=== PATIENT | female | born 1980 | race American Indian/Alaskan Native ===

== ENCOUNTER 2019-12-20 23:24 | Inpatient (IN) | payer OTHER ==
[2019-12-20] MEDS ORDERED: NIFEdipine 10 MG Cap PO ONE (23:35)
[2019-12-20] MEDS ORDERED: Terbutaline 1 MG/ML SDV SUBCUT ONE (23:35)
[2019-12-20] MEDS ORDERED: Neostigmine Methylsulfate 1 MG/ML 5 ML Syringe ONE (23:36)
[2019-12-20] MEDS ORDERED: Dexamethasone 4 MG/ML SDV ONE (23:36)
[2019-12-20] MEDS ORDERED: Ondansetron 4 MG/2 ML SDV ONE (23:36)
[2019-12-20] MEDS ORDERED: Propofol 200 MG/20 ML SDV ONE (23:36)
[2019-12-20] MEDS ORDERED: Succinylcholine 200 MG/10 ML MDV ONE (23:36)
[2019-12-20] MEDS ORDERED: Rocuronium 50 MG/5 ML Vial ONE (23:36)
[2019-12-20] MEDS ORDERED: Glycopyrrolate 0.2 MG/ML 5 ML MDV ONE (23:36)
[2019-12-20] MEDS ORDERED: fentaNYL 250 MCG/5 ML SDV ONE (23:37)
[2019-12-20] MEDS ORDERED: Midazolam 1 MG/ML 2 ML SDV ONE (23:37)
[2019-12-20] MEDS ORDERED: Oxytocin 10 Units/1 ML SDV ONE (23:43)
[2019-12-20] MEDS ORDERED: cefOXitin 1 GM Vial ONE (23:43)
--- NOTE | 2019-12-20 23:49 | PCM.LDHP ---
L&D History of Present Illness - General Date of Service: 12/20/19 () Admit Problem/Dx: Admission Diagnosis/Problem Admission Diagnosis/Problem Source of Information: Patient History Limitations: Reports: No Limitations - History of Present Illness Introduction:: no care Due in February with twins Timing/Duration: Reports: minutes: (2-3) Location, : Reports: Abdomen Severity: Moderate Improves with: Reports: None - Related Data Allergies/Adverse Reactions: Allergies Allergy/AdvReac Type Severity Reaction Status Date / Time No Known Allergies Allergy Verified 12/20/19 23:37 Home Medications: Home Meds NK [No Known Home Meds] 12/20/19 [History] Past Medical History [employer] History: Reports: : 4 Para: 3 LMP (Approximate): (due February date unknown) Social & Family History - Tobacco Use Smoking Status *Q: Current Every Day Smoker H&P Review of Systems - Review of Systems: Review Of Systems: See Below General: Reports: No Symptoms HEENT: Reports: No Symptoms Pulmonary: Reports: No Symptoms Cardiovascular: Reports: No Symptoms Gastrointestinal: Reports: No Symptoms Genitourinary: Reports: No Symptoms Musculoskeletal: Reports: No Symptoms Skin: Reports: No Symptoms Psychiatric: Reports: No Symptoms Neurological: Reports: No Symptoms Hematologic/Lymphatic: Reports: No Symptoms Immunologic: Reports: No Symptoms L&D Exam - Exam Exam: See Below - Vital Signs Weight: 160 lb - OB Specific Contraction Intensity: Moderate Movement: Active Presentation: Transverse - Keith Score Keith Score Cervix Position: Anterior Keith Score Consistency: Soft Keith Score Effacement: >80% Keith Score Dilation: > 5 cm Keith Score Infant's Station: -1 ,0 Keith Score Total: 12 - Exam General: Alert, Oriented HEENT: PERRLA Lungs: Normal Respiratory Effort Cardiovascular: Regular Rate GI/Abdominal Exam: Normal Bowel Sounds Rectal Exam: Normal Exam Genitourinary: Normal external exam Back Exam: Normal Inspection Extremities: Normal Inspection, No Pedal Edema Skin: Warm Neurological: Cranial Nerves Intact Psychiatric: Alert, Normal Affect - Problem List (1) Tetrahydrocannabinol (THC) dependence SNOMED Code(s): 62991753 ICD Code: F12.20 - CANNABIS DEPENDENCE, UNCOMPLICATED Status: Acute Current Visit: Yes (2) Smoker SNOMED Code(s): 50787586 ICD Code: F17.200 - NICOTINE DEPENDENCE, UNSPECIFIED, UNCOMPLICATED Status : Acute Current Visit: Yes (3) No care in current SNOMED Code(s): 305508149 ICD Code: O09.30 - SUPRVSN OF PREG W INSUFFICIENT ANTENAT CARE, UNSP TRIMESTER Status: Acute Current Visit: Yes Qualifiers: Trimester: second trimester Qualified Code(s): O09.32 - Supervision of with insufficient care, second trimester (4) Twin delivered by section in hospital SNOMED Code(s): 59558949, 617663277 ICD Code: Z38.31 - TWIN LIVEBORN INFANT, DELIVERED BY Status: Acute Current Visit: Yes Problem List Initiated/Reviewed/Updated: Yes Orders Last 24hrs: Active Orders 24 hr Category Date Time Status CBC WITH AUTO DIFF [HEME] Stat Lab 12/20/19 23:27 Ordered DRUG SCREEN, URINE [URCHEM] Stat Lab 12/20/19 23:27 Ordered HBSAG SCREEN Stat Lab 12/20/19 23:27 Ordered HCV ANTIBODY Stat Lab 12/20/19 23:27 Ordered HIV RAPID SCREEN RLFX COMFIRM [CHEM] Stat Lab 12/20/19 23:27 Ordered RED BLOOD CELLS LP [BBK] Routine Lab 12/20/19 23:27 Ordered RUBELLA ANTIBODIES, IGG Stat Lab 12/20/19 23:27 Ordered T PALLIDUM SCREENING CASCADE Stat Lab 12/20/19 23:27 Ordered TYPE AND SCREEN [BBK] Routine Lab 12/20/19 23:31 Ordered TYPE AND SCREEN [BBK] Stat Lab 12/20/19 23:27 Ordered UA W/MICROSCOPIC [URIN] Stat Lab 12/20/19 23:27 Ordered Assessment/Plan Comment:: 39 year twins with no care smoker babies transverse [facility] notified and sending two crews Plan c section delivery and resuscitation
[2019-12-20] MEDS ORDERED: Penicillin G Potassium 5 MILLUNITS in Sodium Chloride 0.9% 100 ML IV ONE (23:50)
[2019-12-20] MEDS ORDERED: Betamethasone Acetate/Betamethasone Sod Phosphate 30 MG/5 ML MDV IM ONE (23:51)
[2019-12-20] MEDS ORDERED: Sodium Chloride 0.9% 100 ML ONE (23:54)
[2019-12-21] MEDS ORDERED: fentaNYL 250 MCG/5 ML SDV ONE (00:27)
[2019-12-21] MEDS ORDERED: fentaNYL 100 MCG/2 ML SDV ONE (01:07)
[2019-12-21] MEDS ORDERED: hydrOXYzine HCL 100 MG/2 ML SDV IM ONE (01:10)
[2019-12-21] MEDS ORDERED: HYDROmorphone/Normal Saline 15 MG/30 ML PCA IV ONE (01:18)
[2019-12-21] MEDS ORDERED: Naloxone 0.4 MG/ML SDV IV PRN (01:20)
[2019-12-21] MEDS ORDERED: HYDROmorphone/Normal Saline 15 MG/30 ML PCA IV PRN (01:20)
[2019-12-21] MEDS ORDERED: Meperidine PF 100 MG/ML Syringe IM ONE (01:59)
[2019-12-21] MEDS ORDERED: hydrOXYzine HCL 100 MG/2 ML SDV IM PRN (02:04)
[2019-12-21] MEDS ORDERED: Ondansetron 4 MG/2 ML SDV IVPUSH PRN (02:05)
[2019-12-21] MEDS: Acetaminophen 325 MG Tab PO SCH ×4 (02:16→20:16)
[2019-12-21] MEDS: cefOXitin 2 GM in Sodium Chloride 0.9% 50 ML IV SCH ×4 (02:20→20:16)
[2019-12-21] MEDS ORDERED: Ibuprofen 600 MG Tab PO SCH (05:00)
[2019-12-21] MEDS ORDERED: Dextrose 5%-Lactated Ringers 1,000 ML IV SCH ×3 (07:00→18:16)
--- NOTE | 2019-12-21 08:11 | PCM.SN.2 ---
- Free Text/Narrative Note: I called the NICU this morning and got the ophone number for her to call and check on her babies. Baby A is on the vent and will go to Cpap today and Baby B is on C pap. Both are doing well. Maribel has acute anemia from blood loss, I started her on Iron supplement today and a vitamin. I encouraged ambulation and deep breathing today.
[2019-12-21] MEDS: Prenatal Multivitamin with Calcium/Folic Acid/Iron Tab PO SCH (09:12)
[2019-12-21] MEDS: Ibuprofen 600 MG Tab PO SCH ×3 (09:13→22:19)
--- NOTE | 2019-12-21 09:23 | PN ---
DATE OF SERVICE: 12/21/2019 SUBJECTIVE: Maribel had a early this a.m. She states her pain is controlled with the use of a DINING ROOM HOST/HOSTESS. She has been afebrile. Vital signs stable. Oral intake ice chips. Urine output 350 mL via Moulton catheter. Her IV is running at 200 mL per hour. She has no other questions or concerns. OBJECTIVE: GENERAL: Maribel Mallory is a pleasant 39-year-old female. She is alert and orientated. VITAL SIGNS: TPR at 0724, 95.8; 74; 18; blood pressure 103/56. HEENT: Negative. NECK: Supple. HEART: Regular rate and rhythm. LUNGS: Clear. ABDOMEN: Abdominal binder is on. Aquacel dressing is on. There is some shadowing. EXTREMITIES: Without peripheral edema. ASSESSMENT: , viable twin males, both A and B breech presentation. POSTOPERATIVE DIAGNOSIS: twin with ruptured membranes, active labor. Date of surgery: 12/21/2019. Surgeon: Armond Buckley MD. PLAN: 1. Leave IV running at 200 mL per hour until 1800. 2. Discontinue Moulton. 3. Full liquid diet for breakfast, advanced to regular as tolerated. 4. Use incentive spirometer 10 times every hour while awake. 5. May shower when feeling able to. 6. We will evaluate p.r.n. or in a.m. Janelle Gar PA-C /[id number]
[2019-12-21] MEDS: Ferrous Sulfate 325 MG Tab PO SCH (16:19)
[2019-12-21] MEDS: Dextrose 5%-Lactated Ringers 1,000 ML IV SCH (18:35)
[2019-12-22] MEDS: Acetaminophen 325 MG Tab PO SCH ×3 (02:10→13:34)
[2019-12-22] MEDS: cefOXitin 2 GM in Sodium Chloride 0.9% 50 ML IV SCH ×2 (02:11→07:40)
[2019-12-22] MEDS: Ibuprofen 600 MG Tab PO SCH ×2 (03:26→11:30)
[2019-12-22] MEDS: Dextrose 5%-Lactated Ringers 1,000 ML IV SCH (05:31)
[2019-12-22] MEDS ORDERED: HYDROmorphone 2 MG Tab PO PRN (07:44)
[2019-12-22] MEDS: Ferrous Sulfate 325 MG Tab PO SCH (08:41)
[2019-12-22] MEDS ORDERED: Docusate Sodium 100 MG Cap PO SCH (09:00)
[2019-12-22] MEDS ORDERED: Bisacodyl 5 MG Tab PO SCH (09:00)
[2019-12-22 09:13] LABS: HBSAG SCREEN Negative (Negative)
[2019-12-22] MEDS: Prenatal Multivitamin with Calcium/Folic Acid/Iron Tab PO SCH (11:42)
--- NOTE | 2019-12-22 13:54 | DISCH ---
ADMISSION DIAGNOSES: 1. Intrauterine of twins, approximately 26 to 28 weeks' gestation. 2. Cannabis dependence. 3. Nicotine dependence. 4. No care in current . 5. Toxicology screen presumptive positive for MDMA and marijuana. DISCHARGE DIAGNOSIS: section, viable twin males, both A and B breech presentation. Date of 12/21/2019. Surgeon: Armond Buckley MD. POSTOPERATIVE DIAGNOSIS: twin with ruptured membranes, active labor. HISTORY: Maribel Mallory is a pleasant 39-year-old female, who presented to [facility] in active labor with twin males and no care. After preoperative evaluation and discussion of possible risks and possible complications, she wished to proceed with surgical procedure. HOSPITAL COURSE: Maribel had her surgery on 12/21/2019. She had no operative complications. On postoperative day #1, IV was decreased at 1800 to 100 mL per hour. Moulton was discontinued. Full liquid diet advanced to a regular diet. On postoperative day #2, she was able to be discharged to home. Pain was well managed on oral pain medication. Activity was good. Vital signs were stable. Hemoglobin was 8.8. PHYSICAL EXAMINATION: GENERAL: Maribel Mallory is a pleasant 39-year-old female. VITAL SIGNS: Height is 5 feet 2 inches. Weight is 160 pounds. TPR at 0209; 97.2, 52, 16, blood pressure 103/76. HEENT: Negative. NECK: Supple. HEART: Regular rate and rhythm. LUNGS: Clear. ABDOMEN: Aquacel dressing, stapled midline lower incision intact. Abdominal binder has been on. EXTREMITIES: Without peripheral edema. DISPOSITION: Discharged to home. CONDITION: Stable and improving. FOLLOWUP APPOINTMENT: With Janelle Gar PA-C, on 01/02/2020 at 10:00 a.m. HOME MEDICATIONS: 1. Tylenol 650 mg oral q.6 hours p.r.n. pain. 2. Dulcolax tablets 10 mg oral b.i.d. #30. To stop when having a bowel movement. 3. Colace 100 mg oral b.i.d. #100. 4. Dilaudid 2 mg every 6 hours p.r.n. pain #28. 5. Motrin 600 mg q.6 hours p.r.n. pain #40. 6. vitamins plus iron 1 daily #100. 7. Vitron-C b.i.d. for 30 days. DIET: Usual diet as tolerated. Drink 8 to 10 glasses of water a day. ACTIVITY: No lifting over 10 pounds for 6 weeks. Other activity: Walk at least 6 times a day. Driving: Do not drive for 1 week and while on pain medication. Shower/bathing: May shower. Notify provider if any fever, increased pain, swelling, redness, drainage, nausea, or vomiting. Keep site clean and dry. Wound incision care: Take off Aquacel on 12/26/2019. Use incentive spirometer 10 times every hour while awake for 1 week.
[2019-12-23 21:10] LABS: T PALLIDUM ANTIBODIES Non Reactive (Non Reactive)
--- NOTE | 2019-12-28 15:04 | OR ---
DATE OF PROCEDURE: 12/21/2019 SURGEON: Armond Buckley MD PREOPERATIVE DIAGNOSES: with rupture of membranes and active labor. POSTOPERATIVE DIAGNOSES: with rupture of membranes and active labor. OPERATIVE PROCEDURE: section with delivery of viable twin males ([id number]). ANESTHESIA: General. BIOMEDICAL EQUIPMENT TECH: Shabnam Martinez CNM INDICATION FOR PROCEDURE: This is a 39-year-old female presenting with a twin with her , active labor, and ruptured membranes. The babies, by ultrasound, both appeared to be viable. The plan is to proceed with a section. The team from [place] is presently on the way. Potential risks of the procedure were reviewed with the mother and father, who was present, and they wished to proceed. DETAILS OF PROCEDURE: The patient was taken to the operating room. After Moulton catheter was inserted, she was placed in a supine position with a roll underneath the right hip. The abdomen was then prepped and draped. General endotracheal anesthetic was induced. Upon induction of the anesthetic, a midline incision from the umbilicus down to the pubis was made and carried down through the full-thickness abdominal wall. Peritoneal reflection of the bladder on the uterus was then divided and transverse lower uterine segment incision made. Initially, twin-A was delivered through breech presentation and cord was then clamped with a clamp that was labeled as twin-A. Then, twin-B was also delivered through the breech presentation and the cord was clamped and cut with the clamp labeled twin-B. Both delivered babies were viable and did not require intubation. Routine care was given off the field. The patient was given IV and intrauterine oxytocin and IV cefoxitin. Both placentas were then delivered without difficulty. Good uterine contractions were noted. The uterus was then closed with 2 layers of 2-0 Vicryl stitch as was the peritoneal reflection of the bladder on the uterus. The midline fascia was then approximated from the linea semilunaris downward to the pubis initially posteriorly. Then, the anterior fascia was closed with a #2 Vicryl stitch as well. The subcutaneous tissue was approximated with some 4-0 Vicryl stitch and skin with mary. Dressing was applied. The patient was taken to the recovery room in satisfactory condition. Armond Buckley MD /[id number]
[2019-12-30 10:09] LABS: MDMA METABOLITES Negative (Cutoff=250)
== END 2019-12-22 14:00 | disposition home or self-care (01) | DRG 786 ==
LOC: JP.OBCHECK 23:24 → JP.OB 23:33 → OBSVTOIN 12-21 00:24 → JP.MS 12-21 05:46
PROVIDERS: ADMIT Nurse Practitioner Family; ATTEND Surgery
PROC: 10D00Z1 Extraction of Products of Conception, Low, Open Approach (ICD-10-PCS; principal; 2019-12-21)
DX: O30.002 Twin pregnancy, unspecified number of placenta and unspecified number of amniotic sacs, second trimester (principal); O60.12X2 Preterm labor second trimester with preterm delivery second trimester, fetus 2; O60.12X1 Preterm labor second trimester with preterm delivery second trimester, fetus 1; D62 Acute posthemorrhagic anemia; O99.324 Drug use complicating childbirth; Z3A.28 28 weeks gestation of pregnancy; Z37.2 Twins, both liveborn; O32.1XX1 Maternal care for breech presentation, fetus 1; O32.1XX2 Maternal care for breech presentation, fetus 2; O99.02 Anemia complicating childbirth; O99.334 Smoking (tobacco) complicating childbirth; F17.200 Nicotine dependence, unspecified, uncomplicated; F12.20 Cannabis dependence, uncomplicated
CPT/HCPCS: 36415; 59409; 80305-QW; 81001; 85025; 86762; 86780; 86803; 86850; 86900; 86901; 86920; 86922; 87340; 87449; 88307; 94762; 99211; A9270-GY; G0480; J0330; J0694; J0702; J1100; J1170; J2175; J2250; J2405; J2540; J2590; J2704; J2710; J3010; J3105; J3410; J3490; J7050; J7121